=== PATIENT | male | born 1960 | race Caucasian/White ===

== ENCOUNTER 2016-08-03 14:34 | Emergency (ER) | payer OTHER ==
--- NOTE | 2016-08-03 16:06 | DIAGNOSTIC IMAGING REPORT ---
PROCEDURE: CT HEAD WITHOUT CONTRAST INDICATION: TRAUMA/INJURY TECHNIQUE: Noncontrast axial images with sagittal and coronal reformations. COMPARISON: None. FINDINGS: Brain and ventricles are normal. No evidence of an acute process or hemorrhage. Sinuses and mastoids are normal. IMPRESSION: 1. Negative head CT. 2. Findings discussed with JHON Diehl at [address] scans at this facility use dose modulation, iterative reconstruction, and/or weight-based dosing when appropriate to reduce radiation dose to as low as reasonably achievable.
--- NOTE | 2016-08-03 16:30 | ED ORDER SUMMARY ---
..... Patient: AYE ALEMAN OrderSheet [facility] VisitID: [id number] [place] [address] 56y, M Registration Date/Time: 08/03/2016 ORDER SHEET Weight: 81.6 kg (stated) Allergies: No Known Drug Allergy GENERAL ORDERS: CT Head wo Cont Urgent (14:51 08/03/2016 Nicolle Bustillo) (Ack 14:53 LMuller) (15:54 LMuller) MEDICATION ORDERS: IV FLUIDS: ORDER SHEET NOTES: [Electronically signed by Lucita Li P.A.-C (16:43 08/03/2016)] [Electronically signed by Claribel Orosco R.N. (17:00 08/03/2016)] [Electronically locked/signed by Claribel Orosco R.N. (17:00 08/03/2016)]
--- NOTE | 2016-08-03 16:30 | ED NURSING NOTES ---
Clinical Report - Nurses [facility] [place] [address] 08/03/2016 14:37 Patient: AYE ALEMAN TRIAGE Acuity: LEVEL 3. Chief Complaint: FALL while walking, onto the ice and landed on their head; slipped. Alert. No acute distress. ASTRID COMA SCORE: [place] Coma Scale: 15- eyes open spontaneously (4); best verbal response- oriented x 4 (5); best motor response- obeys commands (6). --14:52 Claribel Orosco R.N. 14:44 08/03/16. BP: 137/91. HR: 69. RR: 20. O2 saturation: 98% on room air. Temp: 98.4 F (oral). --14:52 Claribel Orosco R.N. Weight: 81.6 kg stated. Height/Length: 69 inches Per Patient. BMI: 26.6. --14:51 Claribel Orosco R.N. Medications Ibuprofen Oral. --14:50 Claribel Orosco R.N. Medication/allergy information source: the patient. --14:52 Claribel Orosco R.N. Allergies No Known Drug Allergy. --14:51 Claribel Orosco R.N. History Arrived by private vehicle. Historian: patient. Unaccompanied. Primary physician (Moe). Location of injuries: head. This occurred (1 weeks ago). Occurred at home. He has had neck pain. SOCIAL HX: Never smoker. Regular alcohol use; consumes beer and wine. History of heavy drug use: marijuana. FALL RISK ASSESSMENT: Fall risk assessment completed. No fall risk identified. NUTRITIONAL RISK ASSESSMENT: The nutritional risk assessment revealed no deficiencies. FUNCTIONAL ASSESSMENT: Functional assessment: no impairments noted. LEARNING NEEDS ASSESSMENT: The learning needs assessment revealed no barriers. SKIN INTEGRITY ASSESSMENT: Skin integrity risk assessment completed. No skin integrity risk identified. --14:52 Claribel Orosco R.N. Assessment GENERAL / NEURO / PSYCH: Alert. Oriented X 4. Appears in no acute distress. Patient appears calm and cooperative. RESPIRATORY: Respirations not labored. CVS: Capillary refill less than 2 seconds. GI / : Abdomen soft and nontender. SKIN: Mucous membranes are pink. Skin is warm and dry. --14:52 Claribel Orosco R.N. Interventions ID band on patient. To treatment room. --14:52 Claribel Orosco R.N. PHYSICAL ASSESSMENT Ambulatory to room. GENERAL / NEURO / PSYCH: Alert. Oriented X 4. Appears in no acute distress. HEENT: Pupils equal, round and reactive to light. No signs of head trauma. RESPIRATORY: Respirations not labored. CVS: Pulses within normal limits. Capillary refill less than 2 seconds. GI / : Abdomen soft and nontender. EXTREMITIES: Extremities exhibit normal ROM. Neuro-vascular status intact to the extremity. SKIN: Skin intact. Skin is warm and dry. --14:49 Claribel Orosco R.N. NURSING PROGRESS NOTES 14:50 08/03/16. Two patient identifiers checked. Call light placed in reach. Side rails up x 1. Bed placed in lowest position. Brakes of bed on. PA at the patient's bedside. --14:50 Claribel Orosco R.N. DISPOSITION / DISCHARGE Departure time: 16:35 Aug 03 2016. Condition at departure: improved and stable. No learning barriers present. Discharge instructions provided and reviewed with the patient. Reviewed medication(s) side effects, precautions and dosing information. Prescription(s) given to the patient. Patient verbalized understanding. Written instructions provided in Uzbek. The patient was discharged by the physician botany laboratory assistant. He was discharged home. He left the Emergency Department ambulatory and via private vehicle. Patient driving. --16:59 Claribel Orosco R.N. 16:58 08/03/16. BP: 127/80. HR: 64. RR: 18. O2 saturation: 98% on room air. Temp: 98.4 F (oral). --16:59 Claribel Orosco R.N. Locked/Released at 08/03/2016 17:00 by Claribel Orosoc R.N.
--- NOTE | 2016-08-03 16:30 | ED CLINICAL REPORT ---
Clinical Report - Physicians/Mid Levels [facility] [address] [place] [address] 08/03/2016 14:37 Patient: AYE ALEMAN Time Seen: 14:55 Aug 03 2016. Arrived- By private vehicle. Historian- patient. HISTORY OF PRESENT ILLNESS Chief Complaint: INJURY TO HEAD. Location of injuries- head. The injury occurred 7 days. Occurred at home. The patient sustained a blow. The patient sustained a blow to the head. No neck pain or loss of consciousness. (56-year-old male, who slipped and fell on ice, backwards in his driveway 70s prior to arrival, has had a consistent headache since. Denies any vomiting, has had nausea. Has been taking Motrin at home with minor relief. Headache isn't persistent, he feels confused at times, does not remember certain events.). REVIEW OF SYSTEMS No hearing loss, nausea, chest pain, bladder dysfunction or laceration. All systems otherwise negative, except as recorded above. ADDITIONAL NOTES The nursing notes have been reviewed. PHYSICAL EXAM Appearance: Alert. No acute distress. CVS: Heart sounds normal. Pulses normal. Respiratory: Breath sounds normal. Chest nontender. No chest wall injury or decreased breath sounds. Abdomen: Soft. Back: No tenderness. No tenderness. Extremities: Normal inspection. Extremities atraumatic. Neuro: [place] Coma Scale: 15- eyes open spontaneously (4); best verbal response- oriented x 3 (5); best motor response- obeys commands (6). Oriented X 3. No alteration in mental status. Not disoriented. Mood/affect normal. Speech normal. No motor deficit. No sensory deficit. LABS, X-RAYS, AND EKG CT Head: (IMPRESSION: 1. Negative head CT. 2. Findings discussed with JHON Diehl at [address] scans at this facility use dose modulation, iterative reconstruction, and/or weight-based dosing when appropriate to reduce radiation dose to as low as reasonably achievable. Electronically Final signed by:Dequan Plunkett MD 08/03/2016 4:06:36 PM). PROGRESS AND PROCEDURES Course of Care: Full range of motion of the cervical spine, suspicion for fracture after one week is low. No signs of intracranial hemorrhage, as patient was having some deterioration in symptoms, persistent headache. Patient stable. Fall palpation. Patient is stable. Patient/family counseled. Differential Diagnosis: I considered migraine, vascular malformation, vascular dissection, malignant hypertension, bacterial meningitis, encephalitis, carbon monoxide exposure, analgesic abuse, trigeminal neuralgia, Ericka-Galeas neuralgia, muscle tension and acute angle-closure glaucoma as a possible cause of headache in this patient. This is a partial list of diagnoses considered. Disposition: Discharged. Condition: good. CLINICAL IMPRESSION Minor closed head injury. INSTRUCTIONS No strenuous activity. Rest. Prescription Medications: Zofran (orally disintegrating tablets) 4 mg: take 1 orally every 6 hours for 3 days as needed for nausea. Dispense ten (10). Substitution is permissible. OTC Medications: Take OTC medications according to label instructions. Available over the counter. Acetaminophen (available over the counter): take according to label instructions. Motrin (available over the counter): take according to label instructions. Follow-up: Follow up with your doctor in three days. Understanding of the discharge instructions verbalized by patient. (Electronically signed by Lucita Li P.A.-C 08/03/2016 16:43)
--- NOTE | 2016-08-03 16:30 | ED ORDER SUMMARY ---
..... Patient: AYE ALEMAN OrderSheet [facility] VisitID: [id number] [place] [address] 56y, M Registration Date/Time: 08/03/2016 ORDER SHEET Weight: 81.6 kg (stated) Allergies: No Known Drug Allergy GENERAL ORDERS: CT Head wo Cont Urgent (14:51 08/03/2016 Nicolle Bustillo) (Ack 14:53 LMuller) (15:54 LMuller) MEDICATION ORDERS: IV FLUIDS: ORDER SHEET NOTES: [Electronically signed by Lucita Li P.A.-C (16:43 08/03/2016)] [Electronically signed by Claribel Orosco R.N. (17:00 08/03/2016)] [Electronically locked/signed by Claribel Orosco R.N. (17:00 08/03/2016)]
--- NOTE | 2016-08-03 16:30 | ED NURSING NOTES ---
Clinical Report - Nurses [facility] [place] [address] 08/03/2016 14:37 Patient: AYE ALEMAN TRIAGE Acuity: LEVEL 3. Chief Complaint: FALL while walking, onto the ice and landed on their head; slipped. Alert. No acute distress. ASTRID COMA SCORE: [place] Coma Scale: 15- eyes open spontaneously (4); best verbal response- oriented x 4 (5); best motor response- obeys commands (6). --14:52 Claribel Orosco R.N. 14:44 08/03/16. BP: 137/91. HR: 69. RR: 20. O2 saturation: 98% on room air. Temp: 98.4 F (oral). --14:52 Claribel Orosco R.N. Weight: 81.6 kg stated. Height/Length: 69 inches Per Patient. BMI: 26.6. --14:51 Claribel Orosco R.N. Medications Ibuprofen Oral. --14:50 Claribel Orosco R.N. Medication/allergy information source: the patient. --14:52 Claribel Orosco R.N. Allergies No Known Drug Allergy. --14:51 Clairbel Orosco R.N. History Arrived by private vehicle. Historian: patient. Unaccompanied. Primary physician (Moe). Location of injuries: head. This occurred (1 weeks ago). Occurred at home. He has had neck pain. SOCIAL HX: Never smoker. Regular alcohol use; consumes beer and wine. History of heavy drug use: marijuana. FALL RISK ASSESSMENT: Fall risk assessment completed. No fall risk identified. NUTRITIONAL RISK ASSESSMENT: The nutritional risk assessment revealed no deficiencies. FUNCTIONAL ASSESSMENT: Functional assessment: no impairments noted. LEARNING NEEDS ASSESSMENT: The learning needs assessment revealed no barriers. SKIN INTEGRITY ASSESSMENT: Skin integrity risk assessment completed. No skin integrity risk identified. --14:52 Claribel Orosco R.N. Assessment GENERAL / NEURO / PSYCH: Alert. Oriented X 4. Appears in no acute distress. Patient appears calm and cooperative. RESPIRATORY: Respirations not labored. CVS: Capillary refill less than 2 seconds. GI / : Abdomen soft and nontender. SKIN: Mucous membranes are pink. Skin is warm and dry. --14:52 Claribel Orosco R.N. Interventions ID band on patient. To treatment room. --14:52 Claribel Orosco R.N. PHYSICAL ASSESSMENT Ambulatory to room. GENERAL / NEURO / PSYCH: Alert. Oriented X 4. Appears in no acute distress. HEENT: Pupils equal, round and reactive to light. No signs of head trauma. RESPIRATORY: Respirations not labored. CVS: Pulses within normal limits. Capillary refill less than 2 seconds. GI / : Abdomen soft and nontender. EXTREMITIES: Extremities exhibit normal ROM. Neuro-vascular status intact to the extremity. SKIN: Skin intact. Skin is warm and dry. --14:49 Claribel Orosco R.N. NURSING PROGRESS NOTES 14:50 08/03/16. Two patient identifiers checked. Call light placed in reach. Side rails up x 1. Bed placed in lowest position. Brakes of bed on. PA at the patient's bedside. --14:50 Claribel Orosco R.N. DISPOSITION / DISCHARGE Departure time: 16:35 Aug 03 2016. Condition at departure: improved and stable. No learning barriers present. Discharge instructions provided and reviewed with the patient. Reviewed medication(s) side effects, precautions and dosing information. Prescription(s) given to the patient. Patient verbalized understanding. Written instructions provided in Egyptian. The patient was discharged by the physician special events assistant. He was discharged home. He left the Emergency Department ambulatory and via private vehicle. Patient driving. --16:59 Claribel Orosco R.N. 16:58 08/03/16. BP: 127/80. HR: 64. RR: 18. O2 saturation: 98% on room air. Temp: 98.4 F (oral). --16:59 Claribel Orosco R.N. Locked/Released at 08/03/2016 17:00 by Claribel Orosco R.N.
--- NOTE | 2016-08-03 17:00 | ED MED RECONCILIATION SUMMARY ---
Patient: AYE ALEMAN Medication Reconciliation Report [facility] VisitID: [id number] [place] [address] 56y, M Registration Date/Time: 08/03/2016 Weight: 81.6 kg Height/Length: 69 in. BMI: 26.6 ALLERGIES: No Known Drug Allergy The patient's Home Medications are listed below: THE FOLLOWING MEDICATIONS NEED TO BE RECONCILED: Ibuprofen Oral The source(s) of the original Home Medication information: patient The following Medications were given to the patient in the Emergency Department: None. The following Medications were prescribed to the patient: Take OTC medications according to label instructions. Available over the counter. -- Lucita Li, P.A.-C Acetaminophen (available over the counter): take according to label instructions. -- Lucita Li, P.A.-C Motrin (available over the counter): take according to label instructions. -- Lucita Li P.A.-C Zofran (orally disintegrating tablets) 4 mg: take 1 orally every 6 hours for 3 days as needed for nausea. Dispense ten (10). Substitution is permissible. -- Lucita Li, P.A.-C
--- NOTE | 2016-08-03 17:00 | ED MAR SUMMARY ---
..... Medication Administration Record [facility] [address] [place], [place] [id number] Patient: AYE ALEMAN Visit ID: [id number] 56y, M Weight: 81.6 kg Height/Length: 69 in BMI: 26.6 ALLERGIES: No Known Drug Allergy
--- NOTE | 2016-08-03 17:00 | ED MAR SUMMARY ---
..... Medication Administration Record [facility] [address] [place] [id number] Patient: AYE ALEMAN Visit ID: [id number] 56y, M Weight: 81.6 kg Height/Length: 69 in BMI: 26.6 ALLERGIES: No Known Drug Allergy
--- NOTE | 2016-08-03 17:00 | ED DISCHARGE INSTRUCTIONS ---
Patient: AYE ALEMAN General Instructions [facility] VisitID: [id number] [place] [address] 56y, M Registration Date/Time: 08/03/2016 Minor closed head injury. INSTRUCTIONS No strenuous activity. Rest. Prescription Medications: Zofran (orally disintegrating tablets) 4 mg: take 1 orally every 6 hours for 3 days as needed for nausea. Dispense ten (10). Substitution is permissible. OTC Medications: Take OTC medications according to label instructions. Available over the counter. Acetaminophen (available over the counter): take according to label instructions. Motrin (available over the counter): take according to label instructions. Follow-up: Follow up with your doctor in three days. Understanding of the discharge instructions verbalized by patient. ADDITIONAL INFORMATION Head Injury, No Wake-Up (Adult) You have had a head injury. It does not appear serious at this time. Symptoms of a more serious problem (concussion, bruising, or bleeding in the brain) may appear later. Therefore, watch for the WARNING SIGNS listed below. Home Care: Your healthcare provider will tell you whether its okay to drive. If so, you can drive yourself home. For the next day or so, be careful when driving or using heavy machinery until you are sure you have no delayed symptoms. During the next 24 hours someone must stay with you to check for the signs below. It is not necessary to stay awake or be awakened during the night. If you have swelling of the face or scalp, apply an ice pack (ice cubes in a plastic bag, wrapped in a towel) for 20 minutes. Do this every 1-2 hours until the swelling starts to go down. Do not use aspirin or ibuprofen (Motrin, Advil) after a head injury.You may use acetaminophen (Tylenol)to control pain, unless another pain medicine was prescribed. [NOTE: If you have chronic liver or kidney disease or ever had a stomach ulcer or GI bleeding, talk with your doctor before using these medicines.] For the next 24 hours: Do not take alcohol, sedatives or medicines that make you sleepy. Avoid strenuous activities. No lifting or straining. If you have had any symptoms of a concussion today (nausea, vomiting, dizziness, confusion, headache, memory loss or if you were knocked out), do not return to sports or any activity that could result in another head injury until all symptoms are gone and you have been cleared by your doctor. A second head injury before fully recovering from the first one can lead to serious brain injury. Follow Up with your doctor if symptoms are not improving after 24 hours, or as directed. [NOTE: A radiologist will review any X-rays or CT scans that were taken. We will notify you of any new findings that may affect your care.] Get Prompt Medical Attention if any of the followingWARNING SIGNS occur: Repeated vomiting Severe or worsening headache or dizziness Unusual drowsiness, or unable to awaken as usual Confusion or change in behavior or speech, memory loss, blurred vision Convulsion (seizure) Increasing scalp or face swelling Redness, warmth or pus from the swollen area Fluid drainage or bleeding from the nose or ears Concussion (No Wake-Up) A concussion happens when you hit your head with enough force to shake up the brain. This may cause you to lose consciousness be "knocked out" - but not always. Depending on how hard you hit your head, it will take from a few hours up to a few days to get better. Sometimes symptoms may last a few months or longer. This is called post-concussion syndrome. At first, you may have a headache, nausea, vomiting, or dizziness. You may also have problems concentrating or remembering things. This is normal. Symptoms should get better as the hours and days go by. Symptoms that get worse could be a sign of a more serious injury. This might be a bruise or bleeding in the brain. Thats why its important to watch for the warning signs listed below. Home care Follow these tips to help care for yourself at home: During the next day (24 hours) someone must stay with you to check for the signs below. If your face or scalp swells, apply an ice pack for 20 minutes every 1 to 2 hours. Do this until the swelling starts to go down. You can make an ice pack by putting ice cubes in a plastic bag and wrapping the bag in a towel. for 20 minutes every 1-2 hours until the swelling starts to go down. You may use acetaminophen to control pain, unless another pain medicine was prescribed. If you have chronic liver or kidney disease, talk with your doctor before using these medicines. Also talk with your doctor if you ever had a stomach ulcer or GI bleeding. For the next 24 hours: Dont drink alcohol or take sedatives or medicines that make you sleepy. Dont drive or operate machinery. Avoid doing anything strenuous. Dont lift or strain. Dont return to sports or any activity that could cause you to hit your head until all symptoms are gone and you have been cleared by your doctor. A second head injury before fully recovering from the first one can lead to serious brain injury. Follow-up care Follow up with your doctor in 1 week, or as directed. Note: A radiologist will review any X-rays or CT scans that were taken. You will be told of any new findings that may affect your care. When to seek medical care Get prompt medical attention if any of these occur: Repeated vomiting Headache or dizziness that is severe or gets worse Unusual drowsiness, or unable to wake up as usual Confusion or change in behavior or speech, or memory loss Blurred vision Convulsion (seizure) Swelling on the scalp or face that gets worse Redness, warmth, or pus from the swollen area Fluid draining from or bleeding from the nose or ears Ondansetron Oral disintegrating tablet What is this medicine? ONDANSETRON (on HEATHER se jaja) is used to treat nausea and vomiting caused by chemotherapy. It is also used to prevent or treat nausea and vomiting after surgery. How should I use this medicine? These tablets are made to dissolve in the mouth. Do not try to push the tablet through the foil backing. With dry hands, peel away the foil backing and gently remove the tablet. Place the tablet in the mouth and allow it to dissolve, then swallow. While you may take these tablets with water, it is not necessary to do so. Talk to your warehouse team leader regarding the use of this medicine in children. Special care may be needed. What side effects may I notice from receiving this medicine? Side effects that you should report to your doctor or health child care centre director as soon as possible: allergic reactions like skin rash, itching or hives, swelling of the face, lips, or tongue breathing problems dizziness fast or irregular heartbeat feeling faint or lightheaded, falls fever and chills swelling of the hands and feet tightness in the chest Side effects that usually do not require medical attention (report to your doctor or health child care centre director if they continue or are bothersome): constipation or diarrhea headache What may interact with this medicine? Do not take this medicine with any of the following medications: -apomorphine -cisapride -dofetilide -dronedarone -pimozide -thioridazine -ziprasidone This medicine may also interact with the following medications: -carbamazepine -phenytoin -rifampicin -tramadol -other medicines that prolong the QT interval (cause an abnormal heart rhythm) What if I miss a dose? If you miss a dose, take it as soon as you can. If it is almost time for your next dose, take only that dose. Do not take double or extra doses. Where should I keep my medicine? Keep out of the reach of children. Store between 2 and 30 degrees C (36 and 86 degrees F). Throw away any unused medicine after the expiration date. What should I tell my health care provider before I take this medicine? They need to know if you have any of these conditions: heart disease history of irregular heartbeat liver disease low levels of magnesium or potassium in the blood an unusual or allergic reaction to ondansetron, granisetron, other medicines, foods, dyes, or preservatives or trying to get breast-feeding What should I watch for while using this medicine? Check with your doctor or health child care centre director as soon as you can if you have any sign of an allergic reaction. You have been given the following additional information: HEAD INJURY, No Wake-Up (Adult) Concussion, No Wake-Up Ondansetron Oral disintegrating tablet No strenuous activity. Rest. (Electronically signed by Lucita Li P.A.-C 08/03/2016 16:43)
--- NOTE | 2016-08-03 17:00 | ED MED RECONCILIATION SUMMARY ---
Patient: AYE ALEMAN Medication Reconciliation Report [facility] VisitID: [id number] [place] [address] 56y, M Registration Date/Time: 08/03/2016 Weight: 81.6 kg Height/Length: 69 in. BMI: 26.6 ALLERGIES: No Known Drug Allergy The patient's Home Medications are listed below: THE FOLLOWING MEDICATIONS NEED TO BE RECONCILED: Ibuprofen Oral The source(s) of the original Home Medication information: patient The following Medications were given to the patient in the Emergency Department: None. The following Medications were prescribed to the patient: Take OTC medications according to label instructions. Available over the counter. -- Lucita Li, P.A.-C Acetaminophen (available over the counter): take according to label instructions. -- Lucita Li, P.A.-C Motrin (available over the counter): take according to label instructions. -- Lucita Li P.A.-C Zofran (orally disintegrating tablets) 4 mg: take 1 orally every 6 hours for 3 days as needed for nausea. Dispense ten (10). Substitution is permissible. -- Lucita Li, P.A.-C
== END 2016-08-03 16:37 | disposition home or self-care (01) ==
LOC: ED SRH 14:34
DX: S09.90XA Unspecified injury of head, initial encounter (principal); W00.0XXA Fall on same level due to ice and snow, initial encounter; Y93.9 Activity, unspecified; Y92.008 Other place in unspecified non-institutional (private) residence as the place of occurrence of the external cause; Y99.9 Unspecified external cause status